=== PATIENT | female | born 1990 | race Caucasian/White ===

== ENCOUNTER → 2017-11-29 | Outpatient (REF) | payer OTHER ==
[2017-11-29 22:46] LABS: CHLAMYDIA DNA AMPLIFICATION NEGATIVE (NEGATIVE); GC DNA AMPLIFICATION NEGATIVE (NEGATIVE)
== END ==
LOC: M LAB REF 17:34
DX: Z11.3 Encounter for screening for infections with a predominantly sexual mode of transmission (principal)

== ENCOUNTER 2019-05-23 15:11 | Emergency (ER) | payer OTHER ==
[~2019-05-23] VITALS: Ht 170.2 cm; Wt 61.7 kg
[2019-05-23] MEDS ORDERED: LOES1TAB7 PO (15:21)
[2019-05-23] MEDS ORDERED: SERT50TA29 PO (15:21)
[2019-05-23] MEDS ORDERED: SERT25TA21 PO (15:21)
[2019-05-23 17:53] VITALS: BP 114/70
== END 2019-05-23 18:15 | disposition home or self-care (01) ==
LOC: M ED 15:11
DX: F43.0 Acute stress reaction (principal); Z79.3 Long term (current) use of hormonal contraceptives